=== PATIENT | male | born 1970 | race Two or more races ===

== ENCOUNTER 2024-05-27 14:42 | Emergency (ER) | payer OTHER ==
[~2024-05-27] VITALS: Ht 175.3 cm; Wt 107.4 kg
--- NOTE | 2024-05-27 15:08 | ECG ---
[facility] Test Date: 2024-05-27 Test Time: 14:59:49 Pat Name: NILSON MANUEL Department: ER Room: Gender: Wheel Buffer: : 1970 Requested By: LATOYA ALVARADO Order Number: [id number] Reading MD: Merrill Khan Measurements Intervals [place] Rate: 98 P: 42 MD: 135 QRS: 49 QRSD: 89 T: 29 QT: 326 QTc: 417 Interpretive Statements Sinus rhythm Electronically Signed On 05-29-2024 8:25:22 PST by Merrill Khan Please click the below link to view image of tracing.
[2024-05-27] MEDS: IPRATROPIUM BROM 0.5 MG/2.5ML INH SOL NEB ONE (15:29)
[2024-05-27] MEDS: ALBUTEROL SULF 2.5 MG/0.5ML(0.5%) NEB SOLN NEB ONE (15:29)
--- NOTE | 2024-05-27 15:54 | ED.PDOC ---
History of Present Illness HPI Comments 54M presents to the ER w/ no prior Hx associated to the c/c of SOB x1 week. Pt reports that he has been having an ongoing cough which has been worsening and is associated w/ /D. Denies chills, fever, N/V/D, CP or other associated symptom's, modifiers, or recent injuries or sick contact at this time. Vital signs were stable at arrival Chief Complaint: Shortness of Breath Time Seen by MD: 15:15 Primary Care Provider: NONE Reviewed Notes: Nurses Notes, Medications, Allergies Allergies: Coded Allergies: NO KNOWN ALLERGIES (Unverified , 01/05/16) Information Source: Patient Mode of Arrival: Ambulatory Severity: Moderate Timing: Days Duration: Since onset, Days Prehospital treatment: None Past Medical History PAST MEDICAL HISTORY: Denies Surgical History: Denies all surgeries Family History Family History: Reviewed,noncontributory to illness, Unknown Social History Smoker: Non-Smoker Alcohol: Denies ETOH Use Drugs: Denies Drug Use Lives In: Home Constitutional: denies: chills, diaphoresis, fatigue, fever, malaise, sweats, weakness, others EENTM: denies: blurred vision, double vision, ear bleeding, ear discharge, ear drainage, ear pain, ear ringing, eye pain, eye redness, hearing loss, mouth pain, mouth swelling, nasal discharge, nose bleeding, nose congestion, nose pain, photophobia, tearing, throat pain, throat swelling, voice changes, others Respiratory: reports: cough, shortness of breath; denies: hemoptysis, orthopnea, SOB at rest, SOB with excertion, stridor, wheezing, others Cardiovascular: denies: chest pain, dizzy spells, diaphoresis, Dyspnea on exertion, edema, irregular heart beat, left arm pain, lightheadedness, palpitations, PND, syncope, others Gastrointestinal: reports: diarrhea; denies: abdomen distended, abdominal pain, blood streaked bowels, constipated, dysphagia, difficulty swallowing, hematemesis, melena, nausea, poor appetite, poor fluid intake, rectal bleeding, rectal pain, vomiting, others Genitourinary: denies: burning, dysuria, flank pain, frequency, hematuria, incontinence, penile discharge, penile sore, pain, testicle pain, testicle swelling, urgency, others Neurological: denies: dizziness, fainting, headache, left sided numbness, left sided weakness, numbness, paresthesia, pre-existing deficit, right sided numbness, right sided weakness, seizure, speech problems, tingling, tremors, weakness, others Musculoskeletal: denies: back pain, gout, joint pain, joint swelling, muscle pain, muscle stiffness, neck pain, others Integumetry: denies: bruises, change in color, change in hair/nails, dryness, laceration, lesions, lumps, rash, wounds, others Allergic/Immunocompromised: denies: Difficulty Healing, Frequent Infections, Hives, Itching, others Hematologic/Lymphatic: denies: anemia, blood clots, easy bleeding, easy bruising, swollen glands, others Endocrine: denies: excessive hunger, excessive sweating, excessive thirst, excessive urination, flushing, intolerance to cold, intolerance to heat, unexplained weight gain, unexplained weight loss, others Psychiatric: denies: anxiety, bipolar disorder, depression, hopeless, panic disorder, schizophrenia, sleepless, suicidal, others All Other Systems: Reviewed and Negative Physical Exam General Appearance: Moderate Distress ([id number] distress due to cough and burning chest pain concerns. Patient did not look toxic.), Normal HEENT: Normal ENT Inspection, Pharynx Normal, TMs Normal Neck: Full Range of Motion, Non-Tender, Normal, Normal Inspection Respiratory: Chest Non-Tender, Lungs Clear, No Accessory Muscle Use, No Respiratory Distress, Normal Breath Sounds, Other (Unremarkable auscultation bilateral lung roman.) Cardiovascular: No Edema, No JVD, No Murmur, No Gallop, Normal Peripheral Pulse s, Regular Rate/Rhythm Breast Exam: Deferred Gastrointestinal: No Organomegaly, Non Tender, No Pulsatile Mass, Normal Bowel Sounds, Soft Genitalia: Deferred Pelvic: Deferred Rectal: Deferred Extremities: No calf tenderness, Normal capillary refill, Normal inspection, Normal range of motion, Non-tender, No pedal edema Musculoskeletal : Apperance: Normal Neurologic: Alert, No Motor Deficits, Normal Affect, Normal Mood, No Sensory Deficits Cerebellar Function: Normal Reflexes: Normal Skin: Dry, Normal Color, Warm Lymphatic: No Adenopathy Was a procedure done? Was a procedure done?: No Differential Dx Considerations may include: Acute coronary event, viral upper respiratory illness, pneumonia, bronchitis X-Ray, Labs, Meds, VS Vital Signs Date Time Temp Pulse Resp B/P (MAP) Pulse Ox O2 Delivery O2 Flow Rate FiO2 05/27/24 16:31 98.4 89 19 131/74 (93) 98 98.4 05/27/24 16:31 89 19 98 Room Air 05/27/24 15:32 20 96 Room Air* 0 21 05/27/24 15:09 99.1 98 20 129/77 (94) 96 05/27/24 15:07 20 96 Room Air* 0 21 05/27/24 14:59 98 Lab Test 05/27/24 15:33 Range/Units Troponin I High Sensitivity 17 </=54 ng/L Current Medications Medications (Trade) Dose Ordered Sig/Michelle Route Start Time Stop Time Status Last Admin Albuterol (Ventolin Medneb) 2.5 mg ONCE ONCE NEB 05/27/24 15:30 05/27/24 15:31 DC 05/27/24 15:29 Ipratropium [place] (Atrovent Medneb) 0.5 mg ONCE ONCE NEB 05/27/24 15:30 05/27/24 15:31 DC 05/27/24 15:29 Dexamethasone Sodium Phosphate (Decadron Injection) 10 mg ONCE ONCE IM 05/27/24 15:30 05/27/24 15:31 DC 05/27/24 16:25 X-Ray, Labs, Meds, VS Comment All studies performed the ED were evaluated by me personally. Troponins were unremarkable for any acute cardiac concerns. Chest x-ray was unremarkable for any consolidation or fibrotic concerns. Patient appears to be suffering from a viral upper respiratory illness. Advised patient utilize medication as needed as well as good hydration and healthy nutrition throughout. Time of 1ST Reevaluation: 16:45 Reevaluation 1ST: Improved Consultation: PCP Patient Education/Counseling: Diagnosis, Treatment, Prognosis Family Education/Counseling: Diagnosis, Treatment, No Family Present Departure 1 Departure Time of Disposition: 16:45 Impression: Primary Impression: Viral upper respiratory illness Disposition: HOME / SELF CARE / HOMELESS Condition: Stable Additional Instructions: Advise utilizing medication as needed for symptomatic relief as well as good hydration and healthy nutrition throughout illness event. e-Prescriptions Albuterol Sulfate (Albuterol Sulfate Hfa) 108 Mcg/Act Aer 108 MCG IN Q4HP PRN, #1 AER Prov: LATOYA ALVARADO PAC 05/27/24 Acetaminophen (Acetaminophen) 500 Mg Tab 500 MG PO Q4HP PRN, #30 TAB Prov: LATOYA ALVARADO PAC 05/27/24 Benzonatate (Benzonatate) 100 Mg Cap 1 CAP PO Q6HP PRN, #20 CAP Prov: LATOYA ALVARADO PAC 05/27/24 Discharged With: Self, Friend Critical Care Note Critical Care Time?: No Stability Stability form required: No Heart Score Heart Score: Heart Score Response (Comments) Value History Slightly Suspicious 0 EKG Normal 0 Age 45-64 1 Risk Factors No known risk factors 0 Troponin Normal limit 0 Total 1 I personally scribed for LATOYA ALVARADO PAC ([email or web address]) on 05/27/24 at 15:54. Electronically submitted by Nolan Camejo ([email or web address]). LATOYA ALVARADO PAC May 27, 2024 15:54
--- NOTE | 2024-05-27 15:56 | DVH ---
CHEST RADIOGRAPH Indication: Shortness of breath Technique: Single frontal view of the chest was obtained COMPARISON: None FINDINGS: Lines and Tubes: None Lungs: Clear Pleura: No effusion. No pneumothorax. Cardiomediastinal contours: Unremarkable Bones: Unremarkable IMPRESSION: No acute disease.
[2024-05-27] MEDS: DexAMETHasone SOD PHOS 10MG/1ML VIAL INJ IM ONE (16:25)
[2024-05-27 16:31] VITALS: BP 131/74; PULSE 89; RESP 19; TEMP 98.4; O2SAT 98
[2024-05-27] MEDS ORDERED: ACET500T58 PO (16:47)
[2024-05-27] MEDS ORDERED: BENZ100C97 PO (16:47)
[2024-05-27] MEDS ORDERED: ALBU108A5 IN (16:47)
== END 2024-05-27 16:53 | disposition home or self-care (01) ==
LOC: ER 14:42
DX: B97.89 Other viral agents as the cause of diseases classified elsewhere (principal); J06.9 Acute upper respiratory infection, unspecified
CPT/HCPCS: 36415; 71045; 84484; 93005; 94640; 96372; 99285; J1100